=== PATIENT | male | born 1970 | race African-American/Black ===

== ENCOUNTER 2019-07-23 08:15 | Emergency (ER) | payer SELFPAY ==
--- NOTE | 2019-07-23 08:30 | PDOC ---
History of Present Illness - General Chief Complaint: Headache Stated Complaint: HIGH BLOOD PRESSURE - History of Present Illness Initial Comments: The pt is a 49M w/ no reported PMH who presents for evaluation of 1 hour of sudden onset neck pain and BARRETT. The pain started as b/l neck pain that wash achy/ sharp, then extended to a b/l BARRETT that is described as constant, non-radiating, pressure, that is not exacerbated or alleviated by anything he can identify. He endorses associated nausea, diaphoresis, and dizziness. He has never had this happen before and has not taken anything for his symptoms. He denies fevers/chills, vision changes, falls, chest pain, trouble breathing, or changes in strength/sensation. 07/23/19 09:32 Past History - Past Medical History Allergies/Adverse Reactions: Allergies Allergy/AdvReac Type Severity Reaction Status Date / Time No Known Allergies Allergy Verified 07/23/19 09:43 Home Medications: Ambulatory Orders NK [No Known Home Medication] 07/23/19 COPD: No - Immunization History Immunization Up to Date: Yes - Psycho Social/Smoking Cessation Hx Smoking History: Never smoked Information on smoking cessation initiated: No Hx Alcohol Use: No Drug/Substance Use Hx: No Review of Systems - Review of Systems Able to Perform ROS?: Yes Comments:: GENERAL/CONSTITUTIONAL: No fever or chills. No weakness HEAD, EYES, EARS, NOSE AND THROAT: No change in vision. No change in hearing. No sore throat CARDIOVASCULAR: No chest pain or shortness of breath RESPIRATORY: Denies cough, hemoptysis GASTROINTESTINAL: +N; No diarrhea or constipation GENITOURINARY: No dysuria, frequency, or change in urination MUSCULOSKELETAL: No joint or muscle swelling or pain. No back pain SKIN: No rash NEUROLOGIC: +BARRETT; No vertigo, loss of consciousness, or change in strength/ sensation ENDOCRINE: No increased thirst. No abnormal weight change HEMATOLOGIC/LYMPHATIC: No anemia, easy bleeding, or history of blood clots ALLERGIC/IMMUNOLOGIC: No hives or skin allergy 07/23/19 08:29 Is the patient limited Divehi proficient: No *Physical Exam - Vital Signs Last Vital Signs Temp Pulse Resp BP Pulse Ox 98.5 F 89 17 147/100 100 07/23/19 08:20 07/23/19 08:20 07/23/19 08:20 07/23/19 08:20 07/23/19 08:20 - Physical Exam Comments: GENERAL: Awake, alert, and oriented to person/place/time, in no acute distress HEAD: No signs of trauma, normocephalic, atraumatic EYES: PERRLA, EOMI, sclera anicteric, conjunctiva clear ENT: Hearing grossly normal, nares patent, oropharynx clear without exudates. Moist mucosa LUNGS: No distress, speaks in full sentences, clear to auscultation bilaterally HEART: Regular rate and rhythm, normal S1 and S2, no murmurs appreciated, peripheral pulses normal and equal bilaterally ABDOMEN: Soft, nontender, normoactive bowel sounds. No guarding, no rebound. EXTREMITIES: Normal inspection, Normal range of motion, no edema. No clubbing or cyanosis NEUROLOGICAL: Cranial nerves II through XII grossly intact. Normal speech, normal gait, no focal sensorimotor deficits SKIN: Warm, Dry 07/23/19 08:29 ED Treatment Course - LABORATORY CBC & Chemistry Diagram: 07/23/19 08:55 07/23/19 08:55 Medical Decision Making - Medical Decision Making The pt is a 49M w/ no reported PMH who presents for evaluation of 1 hours of sudden onset BARRETT and neck pain w/ associated nausea, dizziness, and diaphoresis ED Course CMP to evaluate for lyte abn CBC to evaluate for anemia/leukocytosis CT head to evaluate for SAH, ICH ECG CXR IVF, Zofran, and Ofirmev for symptomatic relief 07/23/19 09:35 CT Head w/o acute pathology CXR w/o acute pathology Initial trop I neg No leukocytosis No anemia Lytes wnl No JACOBO LFTs nwl 07/23/19 10:42 UA w/o evidence of UTI CTA head and neck read pending 07/23/19 13:12 CTA w/o acute pathology Pt w/ persistent BARRETT, though improved from before -Morphine, Decadron, IVF, and O2 07/23/19 14:34 Second Trop I neg 07/23/19 15:05 Pt feels improved at this time Plan for D/C w/ PCP and Neurology f/u Discharge instructions and return precautions provided Pt in agreement and verbalized understanding Dispo: home 07/23/19 15:41 Discharge - Discharge Information Problems reviewed: Yes Clinical Impression/Diagnosis: Headache Qualifiers: Headache type: unspecified Headache chronicity pattern: acute headache Intractability: not intractable Qualified Code(s): R51 - Headache Nausea and vomiting Qualifiers: Vomiting type: unspecified Vomiting Intractability: non-intractable Qualified Code(s): R11.2 - Nausea with vomiting, unspecified Condition: Stable - Admission No - Follow up/Referral Referrals: Miquel Wu DO [Staff Physician] - Isela Hadley MD [Staff Physician] - Tess James MD [Staff Physician] - - Patient Discharge Instructions Patient Printed Discharge Instructions: DI for Headache Additional Instructions: You were seen in the Emergency Department for evaluation of a headache. Your labs and imaging were unremarkable. Review the handout provided at discharge. Follow up with your primary care provider within a week and the Neurology follow up provided. For pain you may take Tylenol 650mg every 6 hours and Ibuprofen 600mg every 6-8 hours, alternating them each time. Return to the Emergency Department if you develop fevers, chest pain, trouble breathing, vision changes, worsening pain, change in sensation, worsening symptoms, or any new/concerning symptoms. - Post Discharge Activity
[2019-07-23 08:31] VITALS: BMI 24.4
[2019-07-23] MEDS ORDERED: SODIUM CHLORIDE 0.9% 500 ML INFUS.BAG IV ONE ×2 (08:50→14:38)
[2019-07-23] MEDS ORDERED: ACETAMINOPHEN 1000 MG/100 ML VIAL (NON FORMULARY) IVPB ONE (08:50)
[2019-07-23] MEDS ORDERED: ONDANSETRON 4 MG/2 ML VIAL IVPUSH ONE (08:50)
[2019-07-23 09:15] LABS: BASO % 1.1 % (0-2.0); EOS % 1.8 % (0-4.5); HEMATOCRIT 46.3 % (35.4-49); HEMOGLOBIN 15.6 GM/dL (11.7-16.9); LYMPH % 57.4 % (8-40); MCH 31.6 pg (25.7-33.7); MCHC 33.6 g/dl (32.0-35.9); MEAN PLT VOLUME 9.1 fl (7.5-11.1); MONO % 11.8 % (3.8-10.2); NEUT % 27.9 % (42.8-82.8); PLATELET COUNT 167 K/MM3 (134-434); RBC 4.92 M/mm3 (4.00-5.60); RDW 13.9 % (11.9-15.9); WHITE BLOOD COUNT 6.7 K/mm3 (4.0-10.0)
[2019-07-23 09:48] LABS: ALBUMIN 4.3 g/dl (3.4-5.0); BILIRUBIN,TOTAL 0.4 mg/dL (0.2-1); BLOOD UREA NITROGEN 17.3 mg/dL (7-18); CALCIUM 9.2 mg/dL (8.5-10.1); CREATININE 0.9 mg/dL (0.55-1.3); POTASSIUM 3.9 mmol/L (3.5-5.1); TOT PROT 7.4 g/dl (6.4-8.2)
[2019-07-23] MEDS ORDERED: METOCLOPRAMIDE HCL INJECTION 10 MG/2 ML VIAL IVPB ONE (11:36)
[2019-07-23 11:47] LABS: PH,URINE 7.5 (5.0-8.0); URINE APPEARANCE CLEAR; URINE BILIRUBIN NEGATIVE (NEGATIVE); URINE COLOR YELLOW; URINE GLUCOSE (UA) NEGATIVE (NEGATIVE); URINE KETONE NEGATIVE (NEGATIVE); URINE LEUK ESTERASE NEGATIVE (NEGATIVE); URINE NITRITE NEGATIVE (NEGATIVE); URINE PROTEIN NEGATIVE (NEGATIVE); URINE UROBILINOGEN 0.2 mg/dL (0.2-1.0)
[2019-07-23] MEDS ORDERED: METOCLOPRAMIDE HCL INJECTION 10 MG/2 ML VIAL ONE (11:47)
[2019-07-23] MEDS ORDERED: morphine CARPU-JECT 4 MG/1 ML DISP.SYRIN IVPUSH ONE ×3 (12:42→14:38)
--- NOTE | 2019-07-23 12:42 | EKG ---
Test Reason : Blood Pressure : / mmHG Vent. Rate : 072 BPM Atrial Rate : 072 BPM P-R Int : 172 ms QRS Dur : 096 ms QT Int : 342 ms P-R-T Axes : 078 078 063 degrees QTc Int : 374 ms NORMAL SINUS RHYTHM NORMAL ECG NO PREVIOUS ECGS AVAILABLE Confirmed by LUIS BASHIR MD ([id number]) on 07/23/2019 12:42:24 PM Referred By: Confirmed By:LUIS BASHIR MD
--- NOTE | 2019-07-23 12:54 | PDOC ---
Documentation entered by Racheal Avila SCRIBE, acting as scribe for Sierra Pardo MD. Sierra Pardo MD: This documentation has been prepared by the Margarita sweeney Brenda, SCRIBE, under my direction and personally reviewed by me in its entirety. I confirm that the documentation accurately reflects all work, treatment, procedures, and medical decision making performed by me. Attending Attestation - Resident Resident Name: Fredi Blue - ED Attending Attestation I have performed the following: I have examined & evaluated the patient, The case was reviewed & discussed with the resident, I agree w/resident's findings & plan, Exceptions are as noted - HPI HPI: 07/23/19 09:56 The patient is a 49 year old male, with no significant PMH who presents to the emergency department with 1 hour of an acute onset of bilateral sharp neck pain and a bilateral constant headache. The patient notes that the headache is no0n- radiating, and is not aggravated or alleviated by anything. He states having nausea, diaphoresis and dizziness, which he associates with the headache. Patient denies any similar experiences and has not tried taking anything to alleviate pain. The patient denies chest pain, shortness of breath. Denies fever, vomiting, diarrhea and constipation. Denies any urinary symptoms. Allergies: NKA Past surgical history: None reported Social history: No tobacco use, alcohol use or illicit drug use. 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 Patient start symptoms started at the end of his shift he has had a history of headaches in the past associated with nausea however they are infrequent never had a previous diagnosis of migraines. Denies any focal weakness no changes to his speech or his vision he did check his pressure at the time and found it was elevated to 150 systolic over 100 states he has no known history of previous high blood pressure also describes a sort of squeezing feeling from his chest all the way up into his head and felt like he could tell that his pressure was high did not take anything for his pain denies any trauma no fevers no chills My exam the patient is awake alert with a normal neurological exam Differential diagnosis includes subarachnoid hemorrhage, atypical migraine or cluster headache, dehydration, atypical angina or hypertensive emergency or urgency was considered plan head CT CBC CMP EKG troponin and chest x-ray was ordered CT head was negative for any acute pathology due to the patient's persistent neck pain a CTA was ordered to rule out any carotid pathology or dissection read is pending. Labs were otherwise unremarkable troponin was negative patient is afebrile no elevated white count making meningitis very unlikely repeat blood pressures improved most recently 130/90 without any antihypertensives 07/23/19 15:35 CT head and CTA head and neck are both unremarkable. Labs are normal patient is feeling much improved following Tylenol Reglan Decadron and morphine as well as IV hydration will discharge home given follow-up with neurology told to return for any concerning symptoms Heart Score/ECG Review #1 ECG reviewed & interpreted by me at: 12:54 General ECG Interpretation: Sinus Rhythm, Normal Rate, Normal Intervals, No acute ischemic changes
[2019-07-23] MEDS ORDERED: DEXAMETHASONE SOD PHOSPHATE 10 MG/1 ML VIAL IVPUSH ONE (14:38)
[2019-07-23] MEDS ORDERED: morphine SULFATE 4 MG/ML VIAL ONE (14:39)
[2019-07-23] MEDS ORDERED: DEXAMETHASONE SOD PHOSPHATE 10 MG/1 ML VIAL ONE (14:39)
--- NOTE | 2019-07-23 16:07 | PDOC ---
*Physical Exam - Vital Signs Last Vital Signs Temp Pulse Resp BP Pulse Ox 98.2 F 77 17 133/90 100 07/23/19 11:03 07/23/19 11:03 07/23/19 08:20 07/23/19 11:03 07/23/19 11:03 ED Treatment Course - LABORATORY CBC & Chemistry Diagram: 07/23/19 08:55 07/23/19 08:55 - ADDITIONAL ORDERS Additional order review: Laboratory Results 07/23/19 07/23/19 07/23/19 14:01 11:30 08:55 PTT (Actin FS) Sodium Potassium Chloride Carbon Dioxide Anion Gap BUN Creatinine Est GFR (CKD-EPI)AfAm Est GFR (CKD-EPI)NonAf Random Glucose Calcium Total Bilirubin AST ALT Alkaline Phosphatase Troponin I < 0.02 < 0.02 Total Protein Albumin Urine Color Yellow Urine Appearance Clear Urine pH 7.5 Ur Specific [place] 1.024 Urine Protein Negative Urine Glucose (UA) Negative Urine Ketones Negative Urine Blood Negative Urine Nitrite Negative Urine Bilirubin Negative Urine Urobilinogen 0.2 Ur Leukocyte Esterase Negative 07/23/19 07/23/19 08:55 08:55 PTT (Actin FS) 28.7 Sodium 144 Potassium 3.9 Chloride 109 H Carbon Dioxide 28 Anion Gap 7 L BUN 17.3 Creatinine 0.9 Est GFR (CKD-EPI)AfAm 117.47 Est GFR (CKD-EPI)NonAf 101.35 Random Glucose 126 H Calcium 9.2 Total Bilirubin 0.4 AST 21 ALT 31 Alkaline Phosphatase 78 Troponin I Total Protein 7.4 Albumin 4.3 Urine Color Urine Appearance Urine pH Ur Specific [place] Urine Protein Urine Glucose (UA) Urine Ketones Urine Blood Urine Nitrite Urine Bilirubin Urine Urobilinogen Ur Leukocyte Esterase 07/23/19 08:55 RBC 4.92 MCV 94.0 MCHC 33.6 RDW 13.9 MPV 9.1 Neutrophils % 27.9 L Lymphocytes % 57.4 H Monocytes % 11.8 H Eosinophils % 1.8 Basophils % 1.1 - RADIOLOGY Radiology Studies Ordered: Category Date Time Status BRAIN CTA [CT] Stat CT Scan 07/23/19 11:02 Completed NECK CTA [CT] Stat CT Scan 07/23/19 11:02 Completed - Medications Given in the ED: ED Medications Discontinued Medications Generic Name Dose Route Start Last Admin Trade Name Freq PRN Reason Stop Dose Admin Acetaminophen 1,000 mg 07/23/19 08:50 07/23/19 09:09 Ofirmev Injection - IVPB 07/23/19 08:51 1,000 mg ONCE ONE Administration Dexamethasone Sodium Phosphate 10 mg 07/23/19 14:38 07/23/19 14:49 Decadron Injection - IVPUSH 07/23/19 14:39 10 mg ONCE ONE Administration Metoclopramide HCl 10 mg 07/23/19 11:36 07/23/19 13:00 Reglan Injection - IVPB 07/23/19 11:37 10 mg ONCE ONE Administration Morphine Sulfate 4 mg 07/23/19 12:42 07/23/19 14:49 Morphine Injection - IVPUSH 07/23/19 12:43 4 mg ONCE ONE Administration Morphine Sulfate 4 mg 07/23/19 14:32 07/23/19 14:49 Morphine Injection - IVPUSH 07/23/19 14:33 Not Given ONCE ONE Morphine Sulfate 4 mg 07/23/19 14:38 07/23/19 14:49 Morphine Injection - IVPUSH 07/23/19 14:39 Not Given ONCE ONE Ondansetron HCl 4 mg 07/23/19 08:50 07/23/19 09:09 Zofran Injection IVPUSH 07/23/19 08:51 4 mg ONCE ONE Administration Sodium Chloride 1,000 ml 07/23/19 08:50 07/23/19 09:08 Normal Saline - IV 07/23/19 08:51 1,000 ml ONCE ONE Administration Sodium Chloride 1,000 ml 07/23/19 14:38 07/23/19 14:49 Normal Saline - IV 07/23/19 14:39 1,000 ml ONCE ONE Administration Discharge - Discharge Information Problems reviewed: Yes Clinical Impression/Diagnosis: Headache Qualifiers: Headache type: unspecified Headache chronicity pattern: acute headache Intractability: not intractable Qualified Code(s): R51 - Headache Nausea and vomiting Qualifiers: Vomiting type: unspecified Vomiting Intractability: non-intractable Qualified Code(s): R11.2 - Nausea with vomiting, unspecified Condition: Stable - Follow up/Referral Referrals: Miquel Wu DO [Staff Physician] - Isela Hadley MD [Staff Physician] - Tess James MD [Staff Physician] - - Patient Discharge Instructions Patient Printed Discharge Instructions: DI for Headache Additional Instructions: You were seen in the Emergency Department for evaluation of a headache. Your labs and imaging were unremarkable. Review the handout provided at discharge. Follow up with your primary care provider within a week and the Neurology follow up provided. For pain you may take Tylenol 650mg every 6 hours and Ibuprofen 600mg every 6-8 hours, alternating them each time. Return to the Emergency Department if you develop fevers, chest pain, trouble breathing, vision changes, worsening pain, change in sensation, worsening symptoms, or any new/concerning symptoms. - Post Discharge Activity Work/Back to School Note: Back to Work
[2019-07-23 16:18] VITALS: BP 90/63; PULSE 86; TEMP 98.6
== END 2019-07-23 16:18 | disposition home or self-care (01) ==
LOC: JER 08:15
PROC: 3E033NZ Introduction of Analgesics, Hypnotics, Sedatives into Peripheral Vein, Percutaneous Approach (ICD-10-PCS; principal; 2019-07-23)
PROC: 3E033NZ Introduction of Analgesics, Hypnotics, Sedatives into Peripheral Vein, Percutaneous Approach (ICD-10-PCS; 2019-07-23)
PROC: 3E0333Z Introduction of Anti-inflammatory into Peripheral Vein, Percutaneous Approach (ICD-10-PCS; 2019-07-23)
PROC: 3E033GC Introduction of Other Therapeutic Substance into Peripheral Vein, Percutaneous Approach (ICD-10-PCS; 2019-07-23)
PROC: 3E033GC Introduction of Other Therapeutic Substance into Peripheral Vein, Percutaneous Approach (ICD-10-PCS; 2019-07-23)
DX: R51 Headache (principal); R11.2 Nausea with vomiting, unspecified
CPT/HCPCS: 36415; 70450-TC; 70496-TC; 70498-TC; 71045-TC-FY; 80053; 81003; 84484; 85025; 85730; 93005; 93010; 99283-25; J0131; J1100; Q9967